=== PATIENT | female | born 1965 | race American Indian/Alaskan Native ===

== ENCOUNTER 2016-10-28 13:20 | Inpatient (IN) | payer MEDICARE ==
--- NOTE | 2016-10-28 14:52 | Emergency Department Report ---
Chief Complaint: Abdominal Pain Stated Complaint: ACID REFLUX/ BACK/ABD PAIN - HPI History of Present Illness: patient c/o acid reflux and abdominal pain that shoots straight into the back with eating or drinking. States symptoms ongoing x weeks and worsened last 2 days. Reports nausea, pain in the middle of her chest, urinary symptoms. Denies fever, SOB. - Exam Vital Signs: Vital Signs 10/28/16 14:04 Temperature 98.5 F Pulse Rate 79 Respiratory 18 Rate Blood Pressure 132/77 O2 Sat by Pulse 100 Oximetry Physical Exam: General: Obese. NAD. MSE screening note: Focused history and physical exam performed. Due to findings the following was ordered: ED Medical Decision Making - Medical Decision Making Patient to be seen by MD in main ED. ED Disposition for MSE Condition: Stable Instructions: Abdominal Pain (ED)
[2016-10-28 15:58] LABS: Basophils % (Auto) 0.8 % (0.0-1.8); Eosinophils % (Auto) 1.1 % (0.0-4.3); Hematocrit 44.1 % (30.3-42.9); Mean Corpuscular HGB Conc 32 % (30-34); Mean Corpuscular Hemoglobin 27 pg (28-32); Mean Corpuscular Volume 85 fl (79-97); Platelet Count 320 K/mm3 (140-440); Red Blood Count 5.22 M/mm3 (3.65-5.03); Red Cell Distribution Width 15.7 % (13.2-15.2); White Blood Count 7.4 K/mm3 (4.5-11.0)
--- NOTE | 2016-10-28 15:59 | Cat Scan Report ---
CT ABDOMEN AND PELVIS WITHOUT CONTRAST INDICATION: Abdominal pain. COMPARISON: 02/18/2014 FINDINGS: Noncontrast abdomen and pelvis CT performed. LUNG BASES: New mild right lower lobe scarring or atelectasis superimposed upon slight prior scarring. Minimal nonspecific distal esophageal prominence, not excluded for gastroesophageal reflux and/or hiatal hernia, amongst others. ABDOMEN: Please note that sensitivity to detect small visceral lesions is limited due to the absence of intravenous or oral contrast. Stable cholecystectomy clips. However, grossly unremarkable unenhanced liver, spleen, adrenals, kidneys, non-aneurysmal abdominal aorta and the IVC. No ascites or size significant adenopathy. However, subtle pancreatic head prominence inferiorly with minimal surrounding fat stranding now suspected as on axial series 2, images 110-155. Nonopacified GI tract evaluation limited, though grossly nonobstructive. Normal appendix. PELVIS: Uterus again surgically absent with few small phleboliths. Grossly unremarkable unenhanced urinary bladder and the rectosigmoid. No free fluid or significant adenopathy. Mild lower degenerative changes along the imaged spine, including spurring and mid to lower lumbar facet arthropathy. CONCLUSION: Subtle pancreatitis suspected about the pancreatic head with few other incidental findings, as above. Please correlate clinically and with laboratory values. Thank you for the opportunity to participate in this patient's care.
[2016-10-28 16:21] LABS: Alanine Aminotransferase 11 units/L (7-56); Albumin 3.7 g/dL (3.9-5); Albumin/Globulin Ratio 0.9 %; Alkaline Phosphatase 89 units/L (35-129); Anion Gap 21 mmol/L; BUN/Creatinine Ratio 16.66; Bilirubin,Total 0.2 mg/dL (0.1-1.2); Blood Urea Nitrogen 10 mg/dL (7-17); Calcium 9.6 mg/dL (8.4-10.2); Carbon Dioxide 25 mmol/L (22-30); Chloride 98.2 mmol/L (98-107); Glucose 195 mg/dL (65-100); Lipase 98 units/L (13-60); Potassium 4.4 mmol/L (3.6-5.0); Sodium 140 mmol/L (137-145); Total Protein 7.6 g/dL (6.3-8.2)
--- NOTE | 2016-10-28 16:52 | XRay Report ---
CHEST 2 VIEWS: INDICATION: Midchest pain for 2-3 days. Shortness of breath. History of acid reflux. Smoker. COMPARISON: 11/29/2014 FINDINGS: PA and lateral chest radiographs again demonstrate normal cardiomediastinal silhouette. No pleural effusions or CHF, though horizontal right lower lung scarring appears new. Stable minimal left lower lung horizontal scarring. Mild thoracic spine degenerative changes. Probable cholecystectomy clips. CONCLUSION: New mild right lower lung atelectasis/scarring and few other incidental findings, as above. Thank you for the opportunity to participate in this patient's care.
[2016-10-28 17:34] LABS: Bilirubin,Urine NEG (Negative); Blood,Urine NEG (Negative); Ketones,Urine NEG (Negative); Leukocyte Esterase,Urine NEG (Negative); Nitrite,Urine NEG (Negative); Protein,Urine <15 mg/dL mg/dL (Negative); Urobilinogen,Urine < 2.0 mg/dL (<2.0)
[2016-10-29] MEDS ORDERED: NACL 0.9% 1000 ML 1,000 ML IV ONE (01:27)
[2016-10-29] MEDS ORDERED: ZOFRAN IV ONE (01:27)
[2016-10-29] MEDS ORDERED: SUBLIMAZE IV ONE (01:27)
[2016-10-29] MEDS ORDERED: PEPCID IV ONE (01:28)
--- NOTE | 2016-10-29 01:37 | Emergency Department Report ---
HPI - General Chief Complaint: Abdominal Pain Time Seen by Provider: 10/29/16 01:20 - HPI HPI: Room 38 The patient is a 51-year-old female presenting with chief complaint of abdominal pain. Patient states for 1 week she has pain in the epigastric region radiating to her back. Patient states pain worsens with eating or drinking. The patient states even with drinking water her pain increases. Patient admits to nausea but denies vomiting or diarrhea. Patient admits to subjective fever. The patient currently gives her pain a score of 10/10 Location: [see above] Duration: [see above] Quality: Sharp Severity: 10/10 Modifying factors: [see above] Context: [see above] Mode of transportation: [not driving] ED Past Medical Hx - Past Medical History Hx Hypertension: Yes Hx Diabetes: Yes Hx GERD: Yes - Surgical History Hx Cholecystectomy: Yes (2012) Additional Surgical History: hysterectomy - Family History Family history: no significant - Social History Smoking Status: Current Every Day Smoker (1/4 pack per day) Substance Use Type: Alcohol (occasional) - Medications Home Medications: Home Medications Medication Instructions Recorded Confirmed Last Taken Type Cyclobenzaprine HCl [Flexeril] 10 mg PO BID #14 tablet 02/18/14 Unknown Rx Ibuprofen [Motrin] 800 mg PO Q8H PRN #16 tablet 02/18/14 Unknown Rx Esomeprazole Magnesium [NexIUM] 40 mg PO QDAY #30 capsule. 11/29/14 Unknown Rx Mag Hydrox/Al Hydrox/Simeth 20 ml PO QID PRN #1 bottle 11/29/14 Unknown Rx [Maalox Advanced Suspension] Oxycodone HCl/Acetaminophen 1 each PO Q6HR PRN #20 tablet 11/29/14 Unknown Rx [Percocet 7.5-325 mg] ED Review of Systems ROS: Stated complaint: ACID REFLUX/ BACK/ABD PAIN Other details as noted in HPI Comment: All other systems reviewed and negative Constitutional: fever (subjective) Eyes: denies: eye pain, eye discharge, vision change ENT: denies: ear pain, throat pain Respiratory: no symptoms reported Cardiovascular: denies: chest pain, palpitations Endocrine: no symptoms reported Gastrointestinal: abdominal pain, nausea. denies: vomiting, diarrhea Genitourinary: denies: urgency, dysuria, discharge Musculoskeletal: back pain. denies: joint swelling, arthralgia Skin: denies: rash, lesions Neurological: denies: headache, weakness, paresthesias Psychiatric: denies: anxiety, depression Hematological/Lymphatic: denies: easy bleeding, easy bruising Physical Exam - Physical Exam Vital Signs: Vital Signs 10/28/16 14:04 Temperature 98.5 F Pulse Rate 79 Respiratory 18 Rate Blood Pressure 132/77 O2 Sat by Pulse 100 Oximetry Physical Exam: GENERAL: The patient is well-developed well-nourished female lying on stretcher appearing to be in moderate discomfort. [] HEENT: Normocephalic. Atraumatic. Extraocular motions are intact. Patient has moist mucous membranes. NECK: Supple. Trachea midline CHEST/LUNGS: Clear to auscultation. There is no respiratory distress noted. HEART/CARDIOVASCULAR: Regular. There is no tachycardia. There is no gallop rub or murmur. ABDOMEN: Abdomen is soft, with tenderness to palpation in the epigastric region. There is no tenderness elsewhere in the abdomen. There is no rebound or guarding. Patient has normal bowel sounds. There is no abdominal distention. SKIN: There is no rash. There is no edema. There is no diaphoresis. NEURO: The patient is awake, alert, and oriented. The patient is cooperative. The patient has normal speech MUSCULOSKELETAL: There is no evidence of acute injury. ED Course Vital Signs 10/28/16 14:04 Temperature 98.5 F Pulse Rate 79 Respiratory 18 Rate Blood Pressure 132/77 O2 Sat by Pulse 100 Oximetry ED Medical Decision Making - Lab Data Result diagrams: 10/28/16 15:49 10/28/16 15:49 Laboratory Tests 10/28/16 10/28/16 10/28/16 14:02 15:49 15:49 WBC 7.4 RBC 5.22 H Hgb 14.0 Hct 44.1 H MCV 85 MCH 27 L MCHC 32 RDW 15.7 H Plt Count 320 Lymph % (Auto) 47.9 H [place] % (Auto) 7.7 H Eos % (Auto) 1.1 Baso % (Auto) 0.8 Lymph # 3.6 [place] # 0.6 Eos # 0.1 Baso # 0.1 Seg Neutrophils % 42.5 Seg Neutrophils # 3.2 Sodium 140 Potassium 4.4 Chloride 98.2 Carbon Dioxide 25 Anion Gap 21 BUN 10 Creatinine 0.6 L Estimated GFR > 60 BUN/Creatinine Ratio 16.66 Glucose 195 H POC Glucose 176 H Calcium 9.6 Total Bilirubin 0.2 AST 11 ALT 11 Alkaline Phosphatase 89 Troponin T < 0.010 Total Protein 7.6 Albumin 3.7 L Albumin/Globulin Ratio 0.9 Lipase 98 H Urine Color Urine Turbidity Urine pH Ur Specific [place] Urine Protein Urine Glucose (UA) Urine Ketones Urine Blood Urine Nitrite Urine Bilirubin Urine Urobilinogen Ur Leukocyte Esterase Urine WBC (Auto) Urine RBC (Auto) Amorphous Crystals Urine Yeast (Budding) 10/28/16 16:26 WBC RBC Hgb Hct MCV MCH MCHC RDW Plt Count Lymph % (Auto) [place] % (Auto) Eos % (Auto) Baso % (Auto) Lymph # [place] # Eos # Baso # Seg Neutrophils % Seg Neutrophils # Sodium Potassium Chloride Carbon Dioxide Anion Gap BUN Creatinine Estimated GFR BUN/Creatinine Ratio Glucose POC Glucose Calcium Total Bilirubin AST ALT Alkaline Phosphatase Troponin T Total Protein Albumin Albumin/Globulin Ratio Lipase Urine Color Yellow Urine Turbidity Cloudy Urine pH 7.0 Ur Specific [place] 1.017 Urine Protein <15 mg/dl Urine Glucose (UA) Neg Urine Ketones Neg Urine Blood Neg Urine Nitrite Neg Urine Bilirubin Neg Urine Urobilinogen < 2.0 Ur Leukocyte Esterase Neg Urine WBC (Auto) 0.0 Urine RBC (Auto) 3.0 Amorphous Crystals 1+ Urine Yeast (Budding) Not Reportable - EKG Data -: EKG Interpreted by Me EKG shows normal: sinus rhythm Rate: normal - EKG Data When compared to previous EKG there are: no significant change Interpretation: unchanged when compared t (11/28/2014) - Differential Diagnosis pancreatitis, biliary pancreatitis, acute cholecystitis, GERD Critical care attestation.: If time is entered above; I have spent that time in minutes in the direct care of this critically ill patient, excluding procedure time. ED Disposition Clinical Impression: Acute pancreatitis Disposition: OP ADMITTED IP TO THIS HOSP Is pt being admited?: Yes Does the pt Need Aspirin: Yes Condition: Fair Instructions: Abdominal Pain (ED) Referrals: PRIMARY CARE, [Primary Care Provider] - 3-5 Days Time of Disposition: 02:02 (hospitalist paged)
--- NOTE | 2016-10-29 02:58 | Admit Criteria Form ---
Admission Criteria Documentation: PANCREATITIS Clinical Indications for Admission to Inpatient Care (Place 'X' for any and all applicable criteria): Admission is indicated for ANY ONE of the following (1)(2)(3)(4): [ ]I. Acute pancreatitis[A] as indicated by 2 or more of the following: [ ]a) Abdominal pain (eg, epigastric, left upper quadrant) [ ]b) Serum amylase or serum lipase greater than 3 times the upper limit of normal [ ]c) Characteristic findings from abdominal imaging (eg, pancreatic inflammation, pancreatic necrosis, peripancreatic fluid collection)[B] [X ]II. Pancreatitis (acute or chronic) requiring inpatient care as indicated by 1 or more of the following: [ ]a) Inability to maintain oral hydration Hypoxemia [ ]b) Evidence of infection (eg, fever, peripancreatic abscess) [X ]c) Severe pain requiring acute inpatient management [ ]d) Hemodynamic instability [ ]e) Hypoxemia [ ]f) Acute renal failure [ ]g) Severe electrolyte abnormalities Extended stay beyond goal length of stay may be needed for (1)(11) [ ]a) Severe acute pancreatitis (10)(19) [ ]b) Persistent symptoms, ascites, or pleural effusion [ ]c) Abdominal compartment syndrome (10) [ ]d) Late complications [ ]e) Acute renal failure (27) [ ]f) Gallstones in gallbladder The original [employer] content created by [employer] has been revised. The portions of the content which have been revised are identified through the use of italic text or in bold,and [facility] has neither reviewed nor approved the modified material.All other unmodified content is copyright [email or web address]. Please see references footnoted in the original [employer] edition 2016 Admission Criteria Met: Yes
[2016-10-29] MEDS ORDERED: DILAUDID IV ONE (03:49)
[2016-10-29] MEDS: NACL 0.9% 1000 ML 1,000 ML IV SCH (04:20)
--- NOTE | 2016-10-29 05:03 | History and Physical Report ---
History of Present Illness Date of examination: 10/29/16 Date of admission: 10/29/16 03:48 History of present illness: 51-year-old man with a history of diabetes, GERD comes emergency room with complaints of epigastric pain started weeks ago. She stated the pain is intermittent in nature, intensity 7/10, radiating to the back and up into the chest, she cannot identify exacerbating or relieving factor. Admits to nausea, no vomiting Patient denies chest pain, palpitation, shortness of breath, cough, hematochezia , dysuria, frequency, focal weakness, dysarthria, fever chills, polydipsia polyuria, hot or cold intolerance, easy bruisability, or rash or bleeding from mucosal membrane, rhinorrhea, epistaxis, earache, tinnitus, blurry vision, eye discharge, anxiety, depression. Other review of systems negative PAST SURGICAL HISTORY: Cholecystectomy, hysterectomy SOCIAL HISTORY: Smoke a quarter pack a day, no alcohol or drugs FAMILY HISTORY: Diabetes Medications and Allergies Allergies Allergy/AdvReac Type Severity Reaction Status Date / Time No Known Allergies Allergy Verified 02/17/14 22:26 Home Medications Medication Instructions Recorded Confirmed Last Taken Type Cyclobenzaprine HCl [Flexeril] 10 mg PO BID #14 tablet 02/18/14 Unknown Rx Ibuprofen [Motrin] 800 mg PO Q8H PRN #16 tablet 02/18/14 Unknown Rx Esomeprazole Magnesium [NexIUM] 40 mg PO QDAY #30 capsule. 11/29/14 Unknown Rx Mag Hydrox/Al Hydrox/Simeth 20 ml PO QID PRN #1 bottle 11/29/14 Unknown Rx [Maalox Advanced Suspension] Oxycodone HCl/Acetaminophen 1 each PO Q6HR PRN #20 tablet 11/29/14 Unknown Rx [Percocet 7.5-325 mg] Active Meds: Active Medications Sodium Chloride (Nacl 0.9% 1000 Ml) 1,000 mls @ 125 mls/hr IV DIRECT CHARITO Last Admin: 10/29/16 04:20 Dose: 125 mls/hr Pantoprazole Sodium (Protonix) 40 mg PO DAILY CHARITO Exam - Physical Exam Narrative exam: Gen. appearance: Patient lying in bed, no apparent distress HEENT: Normocephalic, atraumatic, pupils equally round and reactive to light, extraocular movement intact, and no sclericterus,. No JVD or thyromegaly or nodule,neck supple, no carotid bruit ,mucous membranes moist, no exudate or erythema Heart: S1, S2, regular rate and rhythm Lungs: Clear to auscultation bilaterally, breathing comfortable Abdomen: Positive bowel sounds, tender in the epigastric area, nondistended, no organomegaly Extremity: No edema, cyanosis, clubbing Skin: No rash, nodules, warm, dry Neuro: Oriented 3, cranial nerves II-12 intact, speech is fluent, motor and sensory intact - Constitutional Vitals: Temp Pulse Resp BP Pulse Ox 98.6 F 83 20 151/92 99 10/29/16 04:00 10/29/16 04:00 10/29/16 04:20 10/29/16 04:00 10/29/16 04:00 Results - Labs CBC & Chem 7: 10/28/16 15:49 10/28/16 15:49 - Imaging and Cardiology EKG: image reviewed CT scan - abdomen: report reviewed CT scan - pelvis: report reviewed Assessment and Plan Acute pancreatitis Diabetes complicated by neuropathy GERD Admits medicine Place on bowel rest, start IV fluid, IV morphine Check lipid profile, check fingersticks, cardiac enzymes Start DVT prophylaxis
[2016-10-29] MEDS ORDERED: TYLENOL PO PRN (06:14)
[2016-10-29] MEDS ORDERED: MILK OF MAGNESIA PO PRN (06:14)
[2016-10-29] MEDS ORDERED: DULCOLAX PR PRN (06:14)
[2016-10-29] MEDS ORDERED: ZOFRAN IV PRN (06:14)
[2016-10-29] MEDS: MORPHINE IV PRN ×5 (07:06→23:44)
[2016-10-29 07:40] LABS: Cholesterol 204 mg/dL (50-199); Creatine Kinase 78 units/L (30-135); Creatine Kinase MB < 1.0 ng/mL (0.0-4.0); HDL Cholesterol 54 mg/dL (40-59); LDL Cholesterol,Direct 131 mg/dL (50-130); Triglycerides 95 mg/dL (2-149)
[2016-10-29] MEDS ORDERED: NON-FORMULARY (Esomeprazole Magnesium [Nexium] 40 MG) PO SCH (10:00)
[2016-10-29] MEDS ORDERED: PROTONIX PO SCH (10:00)
[2016-10-29] MEDS: LOVENOX SUB-Q SCH (10:50)
[2016-10-29] MEDS: PROTONIX PO SCH ×2 (10:50→22:34)
[2016-10-29 14:17] LABS: Creatine Kinase MB < 1.0 ng/mL (0.0-4.0)
[2016-10-29 14:18] LABS: Creatine Kinase 80 units/L (30-135)
[2016-10-29] MEDS ORDERED: ZOCOR PO SCH (22:00)
[2016-10-29] MEDS ORDERED: AMBIEN PO PRN (22:58)
[2016-10-30] MEDS: MORPHINE IV PRN ×2 (04:13→08:48)
[2016-10-30] MEDS: NACL 0.9% 1000 ML 1,000 ML IV SCH (04:13)
--- NOTE | 2016-10-30 04:50 | Event Note ---
Date: 10/29/16 Pt seen and evaluated. No significant new physical exam findings since admission. Discussed care plan with patient.
[2016-10-30 07:13] LABS: BUN/Creatinine Ratio 13.33; Basophils % (Auto) 0.5 % (0.0-1.8); Blood Urea Nitrogen 8 mg/dL (7-17); Calcium 8.6 mg/dL (8.4-10.2); Carbon Dioxide 24 mmol/L (22-30); Chloride 105.6 mmol/L (98-107); Eosinophils % (Auto) 2.7 % (0.0-4.3); Glucose 158 mg/dL (65-100); Hematocrit 40.6 % (30.3-42.9); Mean Corpuscular HGB Conc 32 % (30-34); Mean Corpuscular Hemoglobin 27 pg (28-32); Mean Corpuscular Volume 83 fl (79-97); Platelet Count 291 K/mm3 (140-440); Potassium 4.4 mmol/L (3.6-5.0); Red Blood Count 4.88 M/mm3 (3.65-5.03); Red Cell Distribution Width 15.5 % (13.2-15.2); Sodium 141 mmol/L (137-145)
[2016-10-30 07:29] LABS: Anion Gap 16 mmol/L
[2016-10-30] MEDS: LOVENOX SUB-Q SCH (09:04)
[2016-10-30] MEDS: PROTONIX PO SCH (09:05)
--- NOTE | 2016-10-30 14:26 | Discharge Summary ---
Providers - Providers Date of Admission: 10/29/16 03:48 Attending physician: BURAK JACOBS MD Primary care physician: LEGAL OPERATIONS MANAGER Hospitalization Condition: Fair Disposition: DISCHARGED TO HOME OR SELFCARE Time spent for discharge: 35 minutes Core Measure Documentation - Palliative Care Palliative Care/ Comfort Measures: Not Applicable - Core Measures Any of the following diagnoses?: none Exam - Constitutional Vitals: Temp Pulse Resp BP Pulse Ox 98.0 F 71 16 126/76 98 10/30/16 07:41 10/30/16 07:41 10/30/16 07:41 10/30/16 07:41 10/30/16 07:41 General appearance: Present: no acute distress, well-nourished - EENT Eyes: Present: PERRL ENT: hearing intact, clear oral mucosa - Neck Neck: Present: supple, normal ROM - Respiratory Respiratory effort: normal Respiratory: bilateral: CTA - Cardiovascular Heart Sounds: Present: S1 & S2. Absent: rub, click - Extremities Extremities: pulses symmetrical, No edema Peripheral Pulses: within normal limits - Abdominal General gastrointestinal: Present: soft, non-tender, non-distended, normal bowel sounds Female genitourinary: Present: normal - Integumentary Integumentary: Present: clear, warm, dry - Musculoskeletal Musculoskeletal: gait normal, strength equal bilaterally - Psychiatric Psychiatric: appropriate mood/affect, intact judgment & insight - Neurologic Neurologic: CNII-XII intact, moves all extremities Plan Follow up with: PRIMARY CARE, [Primary Care Provider] - 3-5 Days Prescriptions: Oxycodone HCl/Acetaminophen [Percocet 7.5/325 mg] 1 each PO Q6HR PRN #20 tablet PRN Reason: Pain
[2016-10-30 14:31] VITALS: BP 134/81
== END 2016-10-30 16:37 | disposition home or self-care (01) | DRG 439 ==
LOC: ED 13:20 → 3A 10-29 03:48
PROVIDERS: ADMIT Internal Medicine; ATTEND Internal Medicine
DX: K85.90 Acute pancreatitis without necrosis or infection, unspecified (principal); Z68.41 Body mass index [BMI] 40.0-44.9, adult; E11.40 Type 2 diabetes mellitus with diabetic neuropathy, unspecified; K21.9 Gastro-esophageal reflux disease without esophagitis; F17.210 Nicotine dependence, cigarettes, uncomplicated; Z90.49 Acquired absence of other specified parts of digestive tract; Z90.710 Acquired absence of both cervix and uterus; Z79.899 Other long term (current) drug therapy; Z83.3 Family history of diabetes mellitus; E66.9 Obesity, unspecified
CPT/HCPCS: 36415; 71020; 74176; 80048; 80053; 80061; 81001; 82550; 82553; 82962; 83690; 84484; 85025; 85379; 93005; 93010; 96361; 96374; 96375; J1170; J1650; J1815; J2270; J2405; J3010; J7030

== ENCOUNTER 2018-03-04 13:52 | Outpatient (CLI) | payer MEDICARE ==
--- NOTE | 2018-03-04 15:56 | Mammography Report ---
BILATERAL DIGITAL SCREENING MAMMOGRAM with CAD: 03/04/18 13:52:00 CLINICAL: Routine screening. COMPARISON:None available. FINDINGS: The breasts are mostly fatty with a few bilateral residual retroareolar fibroglandular densities.Left upper-outer parenchymal asymmetry requires additional imaging. No architectural distortion or suspicious calcifications. The right breast is negative. IMPRESSION: Left focal asymmetry requiring further workup. BI-RADS CATEGORY: 0 -- Additional Imaging Evaluation Required RECOMMENDATION: Recall for left mediolateral , spot magnification CC and MLO views and left breast ultrasound if needed. ACR BI-RADS MAMMOGRAPHIC CODES: 0 = Needs additional imaging evaluation; 1 = Negative; 2 = Benign; 3 = Probably benign; 4 = Suspicious; 5 = Malignant; 6 = Known biopsy-proven malignancy COMMENT: 1. Dense breast tissue, i.e., adenosis, fibrocystic changes, etc., may obscure an underlying neoplasm. 2. Approximately 10% of cancers are not detected with mammography. 3. A negative mammography report should not delay biopsy if a clinically suspicious mass is present. COMMENT: Patient follow-up letters are generated via our [employer] application.
== END 2018-03-04 13:53 | disposition home or self-care (01) ==
LOC: SPVWC 13:52
PROVIDERS: ATTEND General Practice
DX: Z12.31 Encounter for screening mammogram for malignant neoplasm of breast (principal); F17.210 Nicotine dependence, cigarettes, uncomplicated
CPT/HCPCS: 77067